=== PATIENT | male | born 1975 | race Caucasian/White ===

== ENCOUNTER 2017-10-10 16:13 | Emergency (ER) | payer BC ==
[2017-10-10 16:34] VITALS: BP 129/71
--- NOTE | 2017-10-10 17:06 | UC ---
Skin Complaint HPI <Daniel Au - Last Filed: 10/10/17 17:38> - HPI Summary HPI Summary: PT presents with rash to left side of face. He tells me that his rash developed 4 days ago and started as a small, circular, red growth that was not painful and he thought was a "boil". He was seen by [facility] and prescribed Clindamycin, which he has been taking for the past 4 days. He is here today because the redness has increased and he has developed swelling extending down to his left jaw. There is also mild swelling under his left eye, but no ocular involvement. His vision is not blurry or decreased, other than mildly obstructed due to swelling under his eye. He denies drainage, pain, bleeding, numbness, tingling, recent illness, fever, chills, vision changes, or rashes anywhere else. - History of Current Complaint Hx Obtained From: Patient Onset/Duration: Sudden Onset Skin Exposure Onset/Duration: Days Ago Timing: Constant Onset Severity: Mild Current Severity: Moderate <Shar Farias - Last Filed: 10/10/17 21:30> - History of Current Complaint Chief Complaint: UCSkin Time Seen by Provider: 10/10/17 17:06 Stated Complaint: OPEN SKIN TO LT LATTER-DAY - Allergy/Home Medications Allergies/Adverse Reactions: Allergies Allergy/AdvReac Type Severity Reaction Status Date / Time No Known Allergies Allergy Unverified 11/23/16 13:08 Home Medications: Home Medications Clindamycin Cap(NF) [Clindamycin Cap 300 mg Cap(NF)] 300 mg PO Q6H 10/10/17 [ History Confirmed 10/10/17] Review of Systems Constitutional: Negative Skin: Rash - Left face Eyes: Negative ENT: Negative Respiratory: Negative Cardiovascular: Negative Gastrointestinal: Negative Neurovascular: Negative Neurological: Negative Psychological: Negative All Other Systems Reviewed And Are Negative: Yes <Shar Farias - Last Filed: 10/10/17 21:30> PMH/Surg Hx/FS Hx/Imm Hx Previously Healthy: Yes - Surgical History Surgical History: Yes Surgery Procedure, Year, and Place: SEVERAL LIPOMA EXCISIONS. WISDOM TEETH REMOVAL. LEFT KNEE MENISCUS REPAIR - Family History Known Family History: Positive: None - Social History Occupation: Employed Full-time Lives: With Family Alcohol Use: Rare Substance Use Type: None Smoking Status (MU): Never Smoked Tobacco <Shar Farias - Last Filed: 10/10/17 21:30> Physical Exam Vital Signs: Initial Vital Signs Temp 97.8 F 10/10/17 16:30 Pulse 71 10/10/17 16:30 Resp 18 10/10/17 16:30 BP 129/71 10/10/17 16:30 Pulse Ox 99 10/10/17 16:30 <Daniel Au - Last Filed: 10/10/17 17:38> Triage Information Reviewed: Yes Appearance: Well-Appearing, Well-Nourished Vital Signs: Initial Vital Signs Temp 97.8 F 10/10/17 16:30 Pulse 71 10/10/17 16:30 Resp 18 10/10/17 16:30 BP 129/71 10/10/17 16:30 Pulse Ox 99 10/10/17 16:30 Vital Signs Reviewed: Yes Eyes: Positive: Conjunctiva Clear, Other: - PERRLA. EOMI. Sclera and conjunctiva are not injected.. Negative: Conjunctiva Inflamed, Discharge ENT: Positive: Hearing grossly normal, Pharynx normal, TMs normal, Uvula midline. Negative: Pharyngeal erythema, Nasal congestion, Nasal drainage, TM bulging, TM dull, TM red, Tonsillar swelling, Tonsillar exudate, Sinus tenderness Dental: Positive: Other: - There are no lesions, rashes, or edema within the oral cavity.. Negative: Abscess @, Cellulitis @, Bleeding Neck: Positive: Supple, Nontender, No Lymphadenopathy Respiratory: Positive: Chest non-tender, Lungs clear Cardiovascular: Positive: RRR, No Murmur Psychological: Positive: Age Appropriate Behavior Skin: Positive: rashes, Other - There is an approx 1.5cm diameter of erythema, crusting, and small vesicles just lateral to his left eye along the zygomatic bone. There is mild tenderness when palpated. No streaking, bleeding, or drainage. Mild edema around this lesion and about the parotid gland extending down to his left mandible. There is also mild edema underneath his left eye. There are no lesions of similar nature on the face, ear canal, or oral cavity. <Shar Farias - Last Filed: 10/10/17 21:30> Course/Dx - Course Course Of Treatment: Patient seen with [facility], and has facial swelling left side over maxilla and over left parotid gland. No dental pain. He has a rash that appears herpetic left zygomatic area. EOMI left eye are intact and without pain. Eyelids not cellulitic. Parotid glad is a little enlarged and tender. Plan DC clinda with no improvement in 4 days. Start Augmentin which covers parotid well, and augmentin and bactrim together to cover the skin in case bacterial. Add valtrex to cover for viral etiology. FU with PMD and go to ER if any worse or not better in next 24 hours. <Daniel Au - Last Filed: 10/10/17 17:38> - Course Course Of Treatment: Rash appears herpetic in nature, but is an unusual presentation. Dr. Au also examined the patient and it was decided to stop his clindamycin. Start Augmentin for potential parotid involvement, bactrim to cover skin pathogens, and valtrex for a herpetic cause. It was discussed with the patient that if his symptoms persist or worsen within the next 24 hours, he should seek further treatment in the ED. - Differential Diagnoses - Skin Complaint Differential Diagnoses: Cellulitis, Contact Dermatitis, Eczema, Impetigo, MRSA, Varicella Zoster - Diagnoses Provider Diagnoses: Facial Cellulitis. Parotid gland edema. Shingles left face <Shar Farias - Last Filed: 10/10/17 21:30> Discharge <Daniel Au - Last Filed: 10/10/17 17:38> <Shar Farias - Last Filed: 10/10/17 21:30> - Discharge Plan Condition: Stable Disposition: HOME Prescriptions: Amoxicillin/Clavulanate TAB* [Augmentin TAB 875*] 875 mg PO BID #20 tab Sulfamethox/Trimethoprim DS* [Bactrim DS 800/160 TAB*] 1 tab PO BID #20 tab ValACYclovir (*) [Valtrex 1 GM(*)] 1 gm PO TID #21 tab Patient Education Materials: Shingles (ED), Cellulitis (ED), Mumps in Adults ( ED) Referrals: Shawna Barreto MD [Primary Care Provider] - Additional Instructions: If you develop a fever, SOB, chest pain, new or worsening symptoms - please call your PCP or go to the ED. 1) Please stop the Clindamycin and take all three of your new prescriptions as prescribed. 2) If you develop worsening symptoms such as; increased swelling, pain, trouble with your vision, fever, or chills - please go to the ED.
== END 2017-10-10 17:41 | disposition home or self-care (01) ==
LOC: UCEAST 16:13
DX: L03.211 Cellulitis of face (principal); R60.9 Edema, unspecified; B02.9 Zoster without complications
CPT/HCPCS: 99212; G0463

== ENCOUNTER 2020-02-16 11:01 | Emergency (ER) | payer BC ==
--- NOTE | 2020-02-16 11:13 | UC ---
Lower Extremity/Ankle HPI - HPI Summary HPI Summary: CHIEF COMPLAINT: left lower leg pain HPI: This is a 44 year old male, lower leg swelling left including calf and ankle; tender especially when stands. Began 5 days ago and has become more painful especially over the last 2-3 days. Patient did a cross fit workout 7 days ago. Swelling has increased. "Feels pretty bad." No SOB, dizziness. Worse with standing. Elevation decreases discomfort. No recent travel or procedures. Four years ago, he was evaluated for deep vein thrombosis and pulmonary embolus. TThe results were negative. hat episode was after a meniscus repair to the left knee. Today, similar symptoms that are getting worse. VITAL SIGNS REVIEWED. Within normal limits unless noted here. 143/91; no anti- hypertensive medications. NURSES NOTE REVIEWED. "pt with worsening lower leg swelling, making it difficult to sleep. no numbness, some mild redness. pt has had this in the past , and ruled out DVT in the hospital. " - History of Current Complaint Stated Complaint: LEG COMPLAINT Time Seen by Provider: 02/16/20 11:03 - Allergies/Home Medications Allergies/Adverse Reactions: Allergies Allergy/AdvReac Type Severity Reaction Status Date / Time No Known Allergies Allergy Verified 02/16/20 11:09 Home Medications: Home Medications Aspirin 2 tab PO ONCE PRN 02/16/20 [History Confirmed 02/16/20] PMH/Surg Hx/FS Hx/Imm Hx - Additional Past Medical History Additional PMH: PAST MEDICAL HISTORY-meniscus repair on left four years ago before swelling episode 4 years ago. Nurse's past medical history, family history and social history reviewed. CHRONIC & RECURRENT HEALTH PROBLEM LIST REVIEWED. VISIT HISTORY REVIEWED. MEDICATIONS & ALLERGIES REVIEWED. HYPERTENSION HISTORY REVIEWED. FAMILY HISTORY- Positive for: cardiovascular disease. Denies clotting tendency. 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 Previously Healthy: Yes - Surgical History Surgical History: Yes Surgery Procedure, Year, and Place: SEVERAL LIPOMA EXCISIONS. WISDOM TEETH REMOVAL. LEFT KNEE MENISCUS REPAIR - Family History Known Family History: Positive: None - Social History Alcohol Use: Rare Substance Use Type: None Smoking Status (MU): Never Smoked Tobacco Review of Systems All Other Systems Reviewed And Are Negative: Yes Constitutional: Positive: Negative Respiratory: Positive: Negative Cardiovascular: Positive: Negative Gastrointestinal: Positive: Negative Musculoskeletal: Positive: Calf Tenderness - left side calf tenderness; swelling of calf and ankle. Is Patient Immunocompromised?: No Physical Exam - Summary Physical Exam Summary: Appearance: The patient is well-appearing, is well-nourished, and is in no pain or distress. Eyes: Conjunctiva are clear. Pupils are equal and reactive to light and accommodation. Extraocular muscle movement is intact. ENT: The hearing is grossly normal and the TMs are normal. There is no muffled or hoarse voice. No stridor. Neck: The neck is supple and there is no lymphadenopathy. Respiratory: The chest is non-tender to palpation and without crepitus. The lungs are clear, there are normal breath sounds, and there is no respiratory distress. No wheezes, rales or rhonchi. Cardiovascular: Heart sounds reveal a regular rate and rhythm. There are no clicks, rubs or murmurs. There are no carotid bruits. Circulation is grossly intact. Abdomen: The abdomen is soft and nontender. Bowel sounds are present and within normal limits. There is no gross organomegaly. No point tenderness at McBurney s point. No CVA tenderness. Musculoskeletal: Strength is intact. The patient moves all extremities. Leg lower extremity: pain with ambulation; obvious swelling of the left calf; positive Homans; swelling of the left ankle compared to the right; circulation and sensation intact. Neurological: The patient is alert. Motor and sensory are examination grossly intact. Speech is normal. Psychological: The patient displays age appropriate behavior, and is conversant. GCS=15. Skin: Negative for rashes. Triage Information Reviewed: Yes Vital Signs Reviewed: Yes Lower Extremity Course/Dx - Course Course Of Treatment: This is a 44 year old male, lower leg swelling left including calf and ankle; tender especially when he stands. This condition began 5 days ago and has become more painful especially over the last 2-3 days. Patient did a cross fit workout 7 days ago. Swelling has increased. "Feels pretty bad." No SOB, dizziness. Worse with standing. Elevation decreases discomfort. No recent travel or procedures. Four years ago, he was evaluated for deep vein thrombosis and pulmonary embolus. The results were negative. That episode was after a meniscus repair to the left knee. Today, similar symptoms that are getting worse.Patient does have swelling of the left calf compared to the right chronically since the meniscus repair, but he usually has no pain. There is swelling of the left calf and ankle compared to the right lower extremity. Homans is positive on the left. There is no overlying erythema, warmth or discoloration. There are no lesions or break in the skin integrity. Diameter of the calves are unequal. Soft tissue of the posterior lower leg are soft, supple, and no palpable cords were felt, or evidence of thrombophlebitis. Left calf was tender to palpation and swollen. We discussed the possibility that this may be a muscle strain or a blood clot. There is no ultrasound at the urgent care today. Patient will drive by car to the emergency department for further evaluation and treatment. Vital signs are stable. There is no shortness of breath or dizziness. - Differential Dx/Diagnosis Differential Diagnosis/HQI/PQRI: DVT, Sprain, Strain, Tendonitis Provider Diagnosis: Leg edema, left, Hypertension Discharge ED - Sign-Out/Discharge Documenting (check all that apply): Patient Departure All imaging exams completed and their final reports reviewed: No Studies - Discharge Plan Condition: Stable Disposition: HOME-RECOMMEND TO ED Patient Education Materials: Leg Edema (ED) Referrals: Shawna Barreto MD [Primary Care Provider] - Additional Instructions: As we discussed: You have left lower leg swelling and discomfort. History and physical at the urgent care center cannot rule out deep vein thrombosis. Please drive to [facility] Emergency Department for further evaluation and treatment, as needed. - Billing Disposition and Condition Condition: STABLE Disposition: Home-Recommend to ED
[2020-02-16 11:16] VITALS: BP 143/91
== END 2020-02-16 11:49 | disposition home health service (06) ==
LOC: UCEAST 11:01
DX: R60.0 Localized edema (principal); M79.662 Pain in left lower leg; I10 Essential (primary) hypertension
CPT/HCPCS: 99212; G0463

== ENCOUNTER 2020-02-16 12:08 | Emergency (ER) | payer BC ==
[2020-02-16 12:19] VITALS: BP 145/91
[2020-02-16] MEDS ORDERED: Apixaban* 5 MG TAB PO ONE (15:04)
--- NOTE | 2020-02-16 15:08 | ED ---
Lower Extremity - HPI Summary HPI Summary: The patient is a 44-year-old female presenting to [facility] Emergency Department with a chief complaint of swelling and pain in the left calf onset over the last three days. He reports that prior to his symptoms developing, he began doing workouts with his involving a lot of jumping. He now has swelling and pain in the calf increasing since onset. He went to urgent care and was referred here to rule out DVT. There is no redness in the calf. Pain is rated 3/10 in severity now. Past medical history includes depression, lipoma excisions, left knee meniscus repair. Nonsmoker. Admits to rare alcohol use. No substance use. Medications reviewed. Allergies noted. - History of Current Complaint Chief Complaint: EDExtremityLower Stated Complaint: LOWER LEFT LEG SWELLING AND PAIN PER PT Time Seen by Provider: 02/16/20 13:23 Hx Obtained From: Patient Mechanism Of Injury: Unknown Onset/Duration: Still Present Severity Initially: Mild Severity Currently: Mild Pain Intensity: 3 Pain Scale Used: 0-10 Numeric Timing: Constant Location: Is Discrete @ - left calf Character Of Pain: Dull Associated Signs And Symptoms: Positive: Swelling. Negative: Redness Aggravating Factor(s): Nothing Alleviating Factor(s): Nothing - Allergies/Home Medications Allergies/Adverse Reactions: Allergies Allergy/AdvReac Type Severity Reaction Status Date / Time No Known Allergies Allergy Verified 02/16/20 12:18 Home Medications: Home Medications Apixaban* [Eliquis*] 5 mg PO BID #30 tab 02/16/20 [Rx] Aspirin 2 tab PO ONCE PRN 02/16/20 [History Confirmed 02/16/20] PMH/Surg Hx/FS Hx/Imm Hx Endocrine/Hematology History: Denies: Hx Diabetes, Hx Thyroid Disease Cardiovascular History: Denies: Hx Hypercholesterolemia, Hx Hypertension, Hx Pacemaker/ICD, Hx Peripheral Vascular Disease History: Denies: Hx Renal Disease Musculoskeletal History: Denies: Hx Arthritis, Hx Rheumatoid Arthritis, Hx Osteoporosis Sensory History: Denies: Hx Cataracts, Hx Contacts or Glasses, Hx Glaucoma, Hx Hearing Aid Opthamlomology History: Denies: Hx Cataracts, Hx Contacts or Glasses, Hx Glaucoma Neurological History: Denies: Hx Headaches, Hx Seizures, Hx Transient Ischemic Attacks (TIA) Psychiatric History: Reports: Hx Depression Denies: Hx Anxiety, Hx Panic Disorder - Surgical History Surgical History: Yes Surgery Procedure, Year, and Place: SEVERAL LIPOMA EXCISIONS. WISDOM TEETH REMOVAL. LEFT KNEE MENISCUS REPAIR Hx Anesthesia Reactions: No Infectious Disease History: No Infectious Disease History: Denies: Traveled Outside the [place] in Last 30 Days - Family History Known Family History: Negative: Cardiac Disease, Hypertension, Diabetes - Social History Alcohol Use: Rare Hx Substance Use: No Substance Use Type: Reports: None Hx Tobacco Use: No Smoking Status (MU): Never Smoked Tobacco Review of Systems Positive: Edema - left calf with pain Negative: Other - erythema left calf All Other Systems Reviewed And Are Negative: Yes Physical Exam - Summary Physical Exam Summary: VITAL SIGNS: Reviewed. GENERAL: Patient is a well-developed and nourished male who is lying comfortable in the stretcher. Patient is not in any acute respiratory distress. HEAD AND FACE: No signs of trauma. No ecchymosis, hematomas or skull depressions. No sinus tenderness. EYES: PERRL, EOMI x 2, No injected conjunctiva, no nystagmus. EARS: Hearing grossly intact. Ear canals and tympanic membranes are within normal limits. MOUTH: Oropharynx within normal limits. NECK: Supple, trachea is midline, no adenopathy, no JVD, no carotid bruit, no c- spine tenderness, neck with full ROM. CHEST: Symmetric, no tenderness at palpation. LUNGS: Clear to auscultation bilaterally. No wheezing or crackles. CVS: Regular rate and rhythm, S1 and S2 present, no murmurs or gallops appreciated. ABDOMEN: Soft, non-tender. No signs of distention. No rebound, no guarding, and no masses palpated. Bowel sounds are normal. EXTREMITIES: Swelling in the left lower extremity from the knee down to the ankle. Tenderness in the calf, no erythema. Good capillary refill, good pulses. FROM in all major joints, no cyanosis or clubbing. NEURO: Alert and oriented x 3. No acute neurological deficits. Speech is normal and follows commands. SKIN: Dry and warm. Triage Information Reviewed: Yes Vital Signs On Initial Exam: Initial Vitals Temp Pulse Resp BP Pulse Ox 98.6 F 85 16 145/91 97 02/16/20 12:16 02/16/20 12:16 02/16/20 12:16 02/16/20 12:16 02/16/20 12:16 Vital Signs Reviewed: Yes Procedures - Sedation Patient Received Moderate/Deep Sedation with Procedure: No Diagnostics - Vital Signs Vital Signs Temp Pulse Resp BP Pulse Ox 02/16/20 12:16 98.6 F 85 16 145/91 97 - Laboratory Result Diagrams: 02/16/20 15:10 02/16/20 15:10 Lab Statement: Any lab studies that have been ordered have been reviewed, and results considered in the medical decision making process. - Ultrasound Venous Doppler DVT LLE US Ultrasound Interpretation Completed By: Radiologist Summary of Ultrasound Findings: Impression: Occlusive deep venous thrombus as listed above. Dr. Landaverde has reviewed this report. Re-Evaluation - Re-Evaluation First Eval Re-Evaluation Time: 16:00 Comment: I discussed all results and plan for discharge. Lower Extremity Course/Dx - Course Assessment/Plan: The patient is a 67-year-old male presenting to [facility] Emergency Department with a chief complaint of watery diarrhea with nausea and vomiting for the last week. He endorses fevers, diaphoresis, and shortness of breath. He denies any abdominal pain. He is not in pain now[place] travel, known sick contact, or antibiotic use. Admits to occasional alcohol use, marijuana use. Medications reviewed. Allergies noted. In the ED course the patient was placed on a youth nutritional monitor, IV access was obtained, IV fluids started. Past medical records reviewed. Blood test w/o a significant abnormality except for WBCs 11.9, CRP 28.2, alk phos 113. Urinalysis is negative. RLE U/S impression: occlusive deep venous thrombus as listed above. Patient will be taking: Eliquis 10 mg PO BID x 7 days, then 5 mg PO BID. I discussed all the findings and test results with the patient. Patient was instructed to return to the emergency room immediately if any of the symptoms return or worsen. Plan of care was discussed with the patient and understands and agrees. All questions were answered at patient satisfaction. There were no further complaints or concerns. Lung exam before discharge: CTA B/ L. Good air exchange. No wheezing or crackles heard. CVS: S1 and S2 present. No murmurs appreciated. Patient is alert and oriented x 3. Patient is hemodynamically stable. Patient will be discharged home with follow up PCP in the next 2-3 days. - Diagnoses Differential Diagnosis/HQI/PQRI: Positive: DVT Provider Diagnoses: DVT (deep venous thrombosis) - Critical Care Time Critical Care Statement: Critical care time is provided exclusive of any time spent performing procedures. Discharge ED - Sign-Out/Discharge Documenting (check all that apply): Patient Departure - Patient will be discharged home. - Discharge Plan Condition: Stable Disposition: HOME Prescriptions: Apixaban* [Eliquis*] 5 mg PO BID #30 tab Patient Education Materials: Deep Vein Thrombosis (ED) Referrals: Shawna Barreto MD [Primary Care Provider] - 3 Days Additional Instructions: For the first 7 days of treatment, please take 10mg Eliquis in the morning and 10mg at night. After the first week, take 5mg in the morning and 5mg at night. Follow up with your primary care provider in 2-3 days. Return to the emergency department for any new or worsening symptoms. - Billing Disposition and Condition Condition: STABLE Disposition: Home - Attestation Statements Document Initiated by Scribe: Yes Documenting Scribe: Liset Goodwin Provider For Whom Lolly is Documenting (Include Credential): Daniel Landaverde MD Scribe Attestation: Liset Dubon, scribed for Daniel Landaverde MD on 02/17/20 at 1122. Scribe Documentation Reviewed: Yes Provider Attestation: The documentation as recorded by the Liset mir accurately reflects the service I personally performed and the decisions made by me, Daniel Landaverde MD Status of Scribe Document: Viewed
[2020-02-16 15:25] LABS: ABS Eosinophils 0.3 10^3/ul (0-0.6); ABS Lymphocytes 2.5 10^3/ul (1.0-4.8); ABS Monocytes 1.3 10^3/ul (0-0.8); ABS Neutrophils 7.8 10^3/ul (1.5-7.7); Eosinophil % 2.2 %; Hematocrit 48 % (42-52); Hemoglobin 16.6 g/dL (14.0-18.0); Lymphocyte % 21.1 %; Mean Corpuscular HGB Conc 35 g/dL (31-36); Mean Corpuscular Hemoglobin 30 pg (27-31); Mean Corpuscular Volume 87 fL (80-94); Mean Platelet Volume 7.8 fL (7.4-10.4); Platelet Count 215 10^3/uL (150-450); Red Blood Count 5.56 10^6 /uL (4.18-5.48); Red Cell Distribution Width 13 % (10-15); White Blood Count 11.9 10^3/uL (3.5-10.8)
[2020-02-16 15:32] LABS: Urine Appearance Clear; Urine Bilirubin Negative (Negative); Urine Blood Negative (Negative); Urine Color Yellow; Urine Glucose Negative (Negative); Urine Ketones Negative (Negative); Urine Nitrite Negative (Negative); Urine Protein Negative (Negative); Urine Specific Gravity 1.021 (1.010-1.030); Urine Urobilinogen Negative (Negative)
[2020-02-16 15:41] LABS: Albumin 4.5 g/dL (3.2-5.2); Albumin/Globulin Ratio 1.4 (1-3); BUN/Creatinine Ratio 20.7 (8-20); C Reactive Protein 28.21 mg/L (<8.01); Calcium 9.5 mg/dL (8.6-10.3); EGFR African American 107.2 (>60); EGFR Non-African American 88.6 (>60); Globulin 3.2 g/dL (2-4); Potassium 4.3 mmol/L (3.5-5.0); Total Bilirubin 0.9 mg/dL (0.2-1.0); Total Protein 7.7 g/dL (6.4-8.9)
== END 2020-02-16 16:14 | disposition home or self-care (01) ==
LOC: ED 12:08
DX: I82.402 Acute embolism and thrombosis of unspecified deep veins of left lower extremity (principal); Z79.01 Long term (current) use of anticoagulants; Z79.82 Long term (current) use of aspirin
CPT/HCPCS: 36415; 80053; 81003; 85025; 86140; 99282